=== PATIENT | female | born 1940 | race African-American/Black ===

== ENCOUNTER 2023-04-13 10:01 | Inpatient (IN) | payer OTHER ==
[2023-04-13] MEDS ORDERED: ACETAMINOPHEN 1000 MG/100 ML BAG IVPB ONE ×2 (10:59→18:01)
[2023-04-13] MEDS ORDERED: ACETAMINOPHEN INJECTION 100 ML IVPB ONE ×2 (11:14→18:15)
[2023-04-13 11:20] LABS: VENOUS BASE EXCESS 1.2 mmol/L (-2-2); VENOUS O2 SATURATION 61.4 % (70-80); VENOUS PCO2 47.1 mmHg (38-52); VENOUS PH 7.377 (7.310-7.410)
[2023-04-13 11:31] LABS: BASO % 0.4 % (0-2.0); EOS % 5.1 % (0-4.5); HEMATOCRIT 43.3 % (32.4-45.2); HEMOGLOBIN 14.5 GM/dL (10.7-15.3); LYMPH % 41.8 % (8-40); MCH 28.7 pg (25.7-33.7); MCHC 33.4 g/dl (32.0-36.0); MEAN CELL VOLUME 86.1 fl (80-96); MEAN PLT VOLUME 9.1 fl (7.5-11.1); MONO % 6.5 % (3.8-10.2); NEUT % 46.2 % (42.8-82.8); PLATELET COUNT 181 10^3/uL (134-434); RBC 5.03 M/mm3 (3.60-5.2); RDW 13.2 % (11.6-15.6); WHITE BLOOD COUNT 4.5 K/mm3 (4.0-10.0)
[2023-04-13 11:37] LABS: INR 1.03 (0.83-1.09); PROTHROMBIN TIME (PATIENT) 11.9 SEC (9.7-13.0)
[2023-04-13 11:40] LABS: ACTIVATED PTT 37.9 SECONDS (25.2-36.5)
[2023-04-13 11:42] LABS: URINE APPEARANCE CLEAR; URINE BILIRUBIN NEGATIVE (NEGATIVE); URINE COLOR YELLOW; URINE GLUCOSE (UA) NEGATIVE (NEGATIVE); URINE KETONE NEGATIVE (NEGATIVE); URINE LEUK ESTERASE NEGATIVE (NEGATIVE); URINE NITRITE NEGATIVE (NEGATIVE); URINE PROTEIN NEGATIVE (NEGATIVE)
[2023-04-13 11:58] LABS: CHLORIDE 108 mmol/L (98-107); POTASSIUM 4.2 mmol/L (3.5-5.1); SODIUM 143 mmol/L (136-145)
[2023-04-13 12:00] LABS: ALBUMIN 3.7 g/dl (3.4-5.0); ANION GAP 6 MMOL/L (8-16); BLOOD UREA NITROGEN 16.3 mg/dL (7-18); CALCIUM 9.3 mg/dL (8.5-10.1); CO2 29 mmol/L (21-32); GLUCOSE,RANDOM 118 mg/dL (74-106)
[2023-04-13 12:03] LABS: CREATININE 0.9 mg/dL (0.55-1.3); SGOT/AST 29 U/L (15-37); SGPT/ALT 23 U/L (13-61)
[2023-04-13 12:05] LABS: BILIRUBIN,TOTAL 0.5 mg/dL (0.2-1); TOT PROT 6.9 g/dl (6.4-8.2)
[2023-04-13 12:06] LABS: ALK PHOS 79 U/L (45-117)
[2023-04-13] MEDS ORDERED: VANCOMYCIN 1 GRAM (PRE-DOCKED) 1,000 MG/200 ML BAG IVPB ONE (14:04)
[2023-04-13] MEDS ORDERED: VANCOMYCIN 1 GRAM (PRE-DOCKED) 1,000 MG/250 ML BAG IVPB ONE (14:09)
[2023-04-13] MEDS: SODIUM CHLORIDE 0.45% 1,000 ML IV SCH (17:38)
[2023-04-13] MEDS: ATORVASTATIN CA 10 MG TABLET (FP) PO SCH (22:53)
[2023-04-13] MEDS: SENNOSIDES 8.6MG TABLET (FP) PO SCH (22:54)
[2023-04-13] MEDS ORDERED: ATORVASTATIN CA 20 MG TABLET (FP) ONE (22:58)
[2023-04-13] MEDS ORDERED: SENNOSIDES 8.6MG TABLET (FP) PO ONE (22:58)
[2023-04-14] MEDS: POLYETHYLENE GLYCOL (HEALTHYLAX) 3350 17 GM PACKET PO SCH ×3 (06:59→21:07)
[2023-04-14 08:39] LABS: BASO % 0.4 % (0-2.0); EOS % 5.5 % (0-4.5); HEMATOCRIT 39.5 % (32.4-45.2); HEMOGLOBIN 13.6 GM/dL (10.7-15.3); MCH 29.4 pg (25.7-33.7); MCHC 34.5 g/dl (32.0-36.0); MEAN CELL VOLUME 85.3 fl (80-96); MEAN PLT VOLUME 9.3 fl (7.5-11.1); MONO % 7.3 % (3.8-10.2); NEUT % 52.8 % (42.8-82.8); PLATELET COUNT 167 10^3/uL (134-434); RBC 4.64 M/mm3 (3.60-5.2); RDW 13.1 % (11.6-15.6); WHITE BLOOD COUNT 4.5 K/mm3 (4.0-10.0)
[2023-04-14 08:52] LABS: POTASSIUM 3.8 mmol/L (3.5-5.1)
[2023-04-14 08:53] LABS: BLOOD UREA NITROGEN 10.7 mg/dL (7-18)
[2023-04-14 08:54] LABS: ALBUMIN 3.5 g/dl (3.4-5.0)
[2023-04-14 08:58] LABS: CREATININE 0.8 mg/dL (0.55-1.3)
[2023-04-14 08:59] LABS: BILIRUBIN,TOTAL 0.4 mg/dL (0.2-1); TOT PROT 6.4 g/dl (6.4-8.2)
[2023-04-14] MEDS: MEMANTINE HCL 5 MG TABLET (UD) PO SCH ×2 (09:38→21:06)
[2023-04-14] MEDS: amLODIPine BESYLATE 5 MG TABLET (FP) PO SCH (09:38)
[2023-04-14] MEDS: ESCITALOPRAM OXALATE 10 MG TABLET PO SCH (09:38)
[2023-04-14] MEDS: SODIUM CHLORIDE 0.45% 1,000 ML IV SCH (11:15)
[2023-04-14] MEDS: HEPARIN NA (PORCINE) 5,000 UNITS/ML 1ML VIAL SQ SCH ×2 (12:11→21:40)
[2023-04-14] MEDS: D5-1/2NS+20 MEQ KCL - 20 MEQ/1,000 ML INFUS.BAG IV SCH (12:12)
[2023-04-14] MEDS: ACETAMINOPHEN 325 MG TABLET (FP) PO PRN ×2 (13:34→21:06)
[2023-04-14] MEDS: VANCOMYCIN/WATER FOR INJ (PEG) 1,000 MG/200 ML BAG IVPB SCH (16:34)
[2023-04-14] MEDS: PIPERACILLIN/TAZOB 3.375 GM 3.375 GM in DEXTROSE 5%-WATER - 50 ML IVPB SCH (17:48)
[2023-04-14] MEDS ORDERED: PIPERACILLIN/TAZOB 3.375 GM 3.375 GM in DEXTROSE 5%-WATER - 50 ML IVPB SCH (18:00)
[2023-04-14] MEDS: SENNOSIDES 8.6MG TABLET (FP) PO SCH (21:06)
[2023-04-14] MEDS: ATORVASTATIN CA 10 MG TABLET (FP) PO SCH (21:06)
[2023-04-15] MEDS: PIPERACILLIN/TAZOB 3.375 GM 3.375 GM in DEXTROSE 5%-WATER - 50 ML IVPB SCH ×2 (02:49→09:45)
[2023-04-15] MEDS: D5-1/2NS+20 MEQ KCL - 20 MEQ/1,000 ML INFUS.BAG IV SCH ×2 (05:08→11:45)
[2023-04-15] MEDS: POLYETHYLENE GLYCOL (HEALTHYLAX) 3350 17 GM PACKET PO SCH ×3 (05:54→21:09)
[2023-04-15] MEDS: amLODIPine BESYLATE 5 MG TABLET (FP) PO SCH (09:43)
[2023-04-15] MEDS: MEMANTINE HCL 5 MG TABLET (UD) PO SCH ×2 (09:43→21:07)
[2023-04-15] MEDS: ESCITALOPRAM OXALATE 10 MG TABLET PO SCH (09:43)
[2023-04-15] MEDS: HEPARIN NA (PORCINE) 5,000 UNITS/ML 1ML VIAL SQ SCH ×2 (09:44→21:06)
[2023-04-15] MEDS: VANCOMYCIN/WATER FOR INJ (PEG) 1,000 MG/200 ML BAG IVPB SCH (14:42)
[2023-04-15 15:35] VITALS: BMI 19.8
[2023-04-15 16:44] LABS: BASO % 0.5 % (0-2.0); EOS % 6.3 % (0-4.5); HEMATOCRIT 44.9 % (32.4-45.2); HEMOGLOBIN 15.3 GM/dL (10.7-15.3); LYMPH % 46.2 % (8-40); MCHC 33.9 g/dl (32.0-36.0); MEAN CELL VOLUME 85.4 fl (80-96); MEAN PLT VOLUME 8.5 fl (7.5-11.1); MONO % 6.8 % (3.8-10.2); NEUT % 40.2 % (42.8-82.8); PLATELET COUNT 183 10^3/uL (134-434); RBC 5.26 M/mm3 (3.60-5.2); RDW 13.5 % (11.6-15.6); WHITE BLOOD COUNT 5.3 K/mm3 (4.0-10.0)
[2023-04-15 17:26] LABS: ALBUMIN 3.8 g/dl (3.4-5.0); ALK PHOS 83 U/L (45-117); ANION GAP 6 MMOL/L (8-16); BILIRUBIN,TOTAL 0.5 mg/dL (0.2-1); BLOOD UREA NITROGEN 7.5 mg/dL (7-18); CALCIUM 8.8 mg/dL (8.5-10.1); CHLORIDE 110 mmol/L (98-107); CO2 24 mmol/L (21-32); CREATININE 0.8 mg/dL (0.55-1.3); GLUCOSE,RANDOM 100 mg/dL (74-106); POTASSIUM 6.7 mmol/L (3.5-5.1); SGOT/AST 40 U/L (15-37); SGPT/ALT 22 U/L (13-61); SODIUM 139 mmol/L (136-145); TOT PROT 7.3 g/dl (6.4-8.2)
[2023-04-15] MEDS: ATORVASTATIN CA 10 MG TABLET (FP) PO SCH (21:06)
[2023-04-15] MEDS: SENNOSIDES 8.6MG TABLET (FP) PO SCH (21:07)
[2023-04-15 21:22] LABS: POTASSIUM 3.7 mmol/L (3.5-5.1)
[2023-04-15 21:24] LABS: CALCIUM 9.3 mg/dL (8.5-10.1)
[2023-04-15 21:25] LABS: ALBUMIN 3.8 g/dl (3.4-5.0); BLOOD UREA NITROGEN 12.7 mg/dL (7-18)
[2023-04-15 21:28] LABS: CREATININE 1.1 mg/dL (0.55-1.3)
[2023-04-15 21:29] LABS: BILIRUBIN,TOTAL 0.4 mg/dL (0.2-1); TOT PROT 7.1 g/dl (6.4-8.2)
[2023-04-16] MEDS: POLYETHYLENE GLYCOL (HEALTHYLAX) 3350 17 GM PACKET PO SCH ×4 (06:22→21:14)
[2023-04-16] MEDS: HEPARIN NA (PORCINE) 5,000 UNITS/ML 1ML VIAL SQ SCH ×2 (09:41→21:15)
[2023-04-16] MEDS: MEMANTINE HCL 5 MG TABLET (UD) PO SCH ×2 (09:41→21:15)
[2023-04-16] MEDS: amLODIPine BESYLATE 5 MG TABLET (FP) PO SCH (09:41)
[2023-04-16] MEDS: ESCITALOPRAM OXALATE 10 MG TABLET PO SCH (10:43)
[2023-04-16] MEDS: ACETAMINOPHEN 325 MG TABLET (FP) PO PRN (12:53)
[2023-04-16] MEDS: D5-1/2NS+20 MEQ KCL - 20 MEQ/1,000 ML INFUS.BAG IV SCH (12:54)
[2023-04-16] MEDS: VANCOMYCIN/WATER FOR INJ (PEG) 1,000 MG/200 ML BAG IVPB SCH (15:30)
[2023-04-16] MEDS: ATORVASTATIN CA 10 MG TABLET (FP) PO SCH (21:15)
[2023-04-16] MEDS: SENNOSIDES 8.6MG TABLET (FP) PO SCH (21:15)
[2023-04-17] MEDS: POLYETHYLENE GLYCOL (HEALTHYLAX) 3350 17 GM PACKET PO SCH ×3 (06:24→21:56)
[2023-04-17] MEDS: D5-1/2NS+20 MEQ KCL - 20 MEQ/1,000 ML INFUS.BAG IV SCH ×2 (08:54→12:34)
[2023-04-17] MEDS: HEPARIN NA (PORCINE) 5,000 UNITS/ML 1ML VIAL SQ SCH ×2 (09:23→21:56)
[2023-04-17] MEDS: ESCITALOPRAM OXALATE 10 MG TABLET PO SCH (09:24)
[2023-04-17] MEDS: amLODIPine BESYLATE 5 MG TABLET (FP) PO SCH (09:24)
[2023-04-17] MEDS: MEMANTINE HCL 5 MG TABLET (UD) PO SCH ×2 (09:26→21:56)
[2023-04-17] MEDS: PIPERACILLIN/TAZOB 3.375 GM 3.375 GM in DEXTROSE 5%-WATER - 50 ML IVPB SCH ×2 (12:36→18:12)
[2023-04-17] MEDS: VANCOMYCIN/WATER FOR INJ (PEG) 1,000 MG/200 ML BAG IVPB SCH (18:13)
[2023-04-17] MEDS: SENNOSIDES 8.6MG TABLET (FP) PO SCH (21:56)
[2023-04-17] MEDS: ATORVASTATIN CA 10 MG TABLET (FP) PO SCH (21:56)
[2023-04-18] MEDS: PIPERACILLIN/TAZOB 3.375 GM 3.375 GM in DEXTROSE 5%-WATER - 50 ML IVPB SCH ×2 (01:00→11:17)
[2023-04-18] MEDS: POLYETHYLENE GLYCOL (HEALTHYLAX) 3350 17 GM PACKET PO SCH ×3 (06:04→22:18)
[2023-04-18] MEDS: D5-1/2NS+20 MEQ KCL - 20 MEQ/1,000 ML INFUS.BAG IV SCH ×2 (06:56→13:21)
[2023-04-18] MEDS: MEMANTINE HCL 5 MG TABLET (UD) PO SCH ×2 (11:16→22:19)
[2023-04-18] MEDS: HEPARIN NA (PORCINE) 5,000 UNITS/ML 1ML VIAL SQ SCH ×2 (11:16→22:19)
[2023-04-18] MEDS: ESCITALOPRAM OXALATE 10 MG TABLET PO SCH (11:17)
[2023-04-18] MEDS: amLODIPine BESYLATE 5 MG TABLET (FP) PO SCH (11:17)
[2023-04-18] MEDS ORDERED: PNEUMOC 20-VAL CONJ-DIP CRM/PF 0.5 ML SYRINGE IM ONE (12:00)
[2023-04-18 15:27] LABS: BASO % 0.4 % (0-2.0); EOS % 4.1 % (0-4.5); HEMATOCRIT 39.2 % (32.4-45.2); HEMOGLOBIN 13.3 GM/dL (10.7-15.3); LYMPH % 33.7 % (8-40); MCH 29.1 pg (25.7-33.7); MEAN CELL VOLUME 85.5 fl (80-96); MEAN PLT VOLUME 8.5 fl (7.5-11.1); MONO % 8.5 % (3.8-10.2); NEUT % 53.3 % (42.8-82.8); PLATELET COUNT 169 10^3/uL (134-434); RBC 4.58 M/mm3 (3.60-5.2); RDW 13.4 % (11.6-15.6); WHITE BLOOD COUNT 6.1 K/mm3 (4.0-10.0)
[2023-04-18 15:47] LABS: POTASSIUM 3.7 mmol/L (3.5-5.1)
[2023-04-18 15:51] LABS: ALBUMIN 3.4 g/dl (3.4-5.0); BLOOD UREA NITROGEN 10.4 mg/dL (7-18)
[2023-04-18 15:54] LABS: CREATININE 0.9 mg/dL (0.55-1.3)
[2023-04-18 15:56] LABS: BILIRUBIN,TOTAL 0.9 mg/dL (0.2-1); TOT PROT 6.3 g/dl (6.4-8.2)
[2023-04-18] MEDS: VANCOMYCIN/WATER FOR INJ (PEG) 1,000 MG/200 ML BAG IVPB SCH (17:50)
[2023-04-18 20:31] LABS: HIV INTERPRETATION NEGATIVE (NEGATIVE)
[2023-04-18] MEDS: SENNOSIDES 8.6MG TABLET (FP) PO SCH (22:18)
[2023-04-18] MEDS: ATORVASTATIN CA 10 MG TABLET (FP) PO SCH (22:19)
[2023-04-19] MEDS: POLYETHYLENE GLYCOL (HEALTHYLAX) 3350 17 GM PACKET PO SCH ×2 (05:56→13:48)
[2023-04-19 08:30] VITALS: RESP 18
[2023-04-19] MEDS: MEMANTINE HCL 5 MG TABLET (UD) PO SCH (09:00)
[2023-04-19] MEDS: HEPARIN NA (PORCINE) 5,000 UNITS/ML 1ML VIAL SQ SCH (09:01)
[2023-04-19] MEDS: amLODIPine BESYLATE 5 MG TABLET (FP) PO SCH (09:01)
[2023-04-19] MEDS: ESCITALOPRAM OXALATE 10 MG TABLET PO SCH (10:20)
[2023-04-19] MEDS: D5-1/2NS+20 MEQ KCL - 20 MEQ/1,000 ML INFUS.BAG IV SCH (11:53)
[2023-04-19 13:50] VITALS: BP 137/73; PULSE 65; TEMP 99
== END 2023-04-19 18:57 | DRG 392 ==
LOC: JER 10:01 → JERBED 14:04 → J4W 04-14 00:36
PROVIDERS: ADMIT Internal Medicine; ATTEND Internal Medicine
DX: R10.9 Unspecified abdominal pain (principal); I10 Essential (primary) hypertension; E78.5 Hyperlipidemia, unspecified; K21.9 Gastro-esophageal reflux disease without esophagitis; F03.90 Unspecified dementia, unspecified severity, without behavioral disturbance, psychotic disturbance, mood disturbance, and anxiety; M81.0 Age-related osteoporosis without current pathological fracture; R00.1 Bradycardia, unspecified; K59.09 Other constipation; I25.119 Atherosclerotic heart disease of native coronary artery with unspecified angina pectoris; K59.00 Constipation, unspecified
CPT/HCPCS: 0241U-QW; 36415; 71045-TC-FY; 74177-TC; 74181-TC; 74183-TC; 80053; 81003; 82550; 82553; 82803; 82962; 83605; 84439; 84443; 84484; 85025; 85610; 85730; 86140; 86301; 86803; 86850; 86900; 86901; 87040; 87086; 87389; 87536; 90677; 93005; 93010; 93306-TC; 99285-25; G0480; J1644; Q9967